=== PATIENT | male | born 1950 | race Native Hawaiian/Other Pacific Islander ===

== ENCOUNTER 2019-05-26 19:26 | Inpatient (IN) | payer OTHER ==
[2019-05-26] VITALS (9 sets, daily range): BP systolic 139–193; BP diastolic 72–86; TEMP 98.9
[~2019-05-26] VITALS: Ht 165.1 cm; Wt 61.2 kg
[2019-05-26 20:08] LABS: PLATELET COUNT 256 K/uL (142-355)
[2019-05-26 20:13] LABS: POTASSIUM 3.4 mmol/L (3.6-5.2); SODIUM 139 mmol/L (136-145)
[2019-05-26 20:17] LABS: PARTIAL THROMBOPLASTIN TIME 25.2 SECONDS (24.5-33.6)
[2019-05-27] VITALS (19 sets, daily range): BP systolic 119–171; BP diastolic 62–81; TEMP 97–97.4; Ht 165.1 cm; Wt 61.2 kg
[2019-05-27 10:08] LABS: PLATELET COUNT 242 K/uL (142-355)
[2019-05-27 11:26] LABS: POTASSIUM 4.1 mmol/L (3.6-5.2)
== END 2019-05-27 12:30 | disposition short-term general hospital (02) | DRG 101 ==
LOC: ED 19:26 → ICU 23:15 → MED/SURG 05-27 11:27
PROVIDERS: Family Medicine; ADMIT Hospitalist
DX: G40.802 Other epilepsy, not intractable, without status epilepticus (principal); E87.2 Acidosis; C64.9 Malignant neoplasm of unspecified kidney, except renal pelvis; C78.7 Secondary malignant neoplasm of liver and intrahepatic bile duct; C79.31 Secondary malignant neoplasm of brain; E87.6 Hypokalemia; E86.0 Dehydration; I10 Essential (primary) hypertension; J44.9 Chronic obstructive pulmonary disease, unspecified; Z72.0 Tobacco use; E16.1 Other hypoglycemia
CPT/HCPCS: 36415; 36600; 51702; 80053; 80164; 80185; 80307; 80320; 80329; 81000; 82550; 82805; 83605; 83880; 84484; 85027; 85610; 85730; 87040; 94664; 94760; 96361; 96365; 96366; 96375; 99285; J0696; J1165; J1650; J2060; J2405; J2930; J3370; J3490

== ENCOUNTER 2019-05-27 12:30 | Inpatient (IN) | payer OTHER ==
[~2019-05-27] VITALS: Ht 165.1 cm; Wt 36.7 kg
[2019-05-27 19:46] VITALS: BP 135/61; TEMP 97.4; Ht 165.1 cm; Wt 36.7 kg
[2019-05-27 20:00] VITALS: BP 137/64; TEMP 97.5
[2019-05-28 19:00] VITALS: BP 145/70; TEMP 99
[2019-05-28 19:15] VITALS: BP 152/65; TEMP 98.9
[2019-05-28 19:30] VITALS: BP 155/75; TEMP 99
[2019-05-28 19:45] VITALS: BP 150/65; TEMP 99
[2019-05-29 08:33] VITALS: BP 157/83; TEMP 98.7
[2019-05-29 20:00] VITALS: BP 169/85; TEMP 97.8
[2019-05-30] MEDS ORDERED: FENT25DI TD (11:11)
[2019-05-30] MEDS ORDERED: SENNA LAX8.6 MG PO (11:14)
[2019-05-30] MEDS ORDERED: FURO20TA67 PO (11:15)
[2019-05-30] MEDS ORDERED: BISA10SU8 RE (11:17)
[2019-05-30] MEDS ORDERED: ABACAVIR SULFAT1 TAB PO (11:27)
[2019-05-30] MEDS ORDERED: HYDROXYZINE HYD25 MG PO (11:28)
[2019-05-30] MEDS ORDERED: DICLOFENAC SODIUM1 % TD (11:57)
[2019-05-30] MEDS ORDERED: GABA300C2 PO (12:04)
[2019-05-30] MEDS ORDERED: ZOFRAN8 MG PO (12:08)
[2019-05-30] MEDS ORDERED: SCOP1.5D TD (12:10)
[2019-05-30] MEDS ORDERED: TYLENOL325 MG PO (12:13)
== END 2019-05-30 16:40 | DRG 687 ==
LOC: MED/SURG 12:30
PROVIDERS: ADMIT Family Medicine
DX: C64.9 Malignant neoplasm of unspecified kidney, except renal pelvis (principal); C78.7 Secondary malignant neoplasm of liver and intrahepatic bile duct; C79.31 Secondary malignant neoplasm of brain; G40.802 Other epilepsy, not intractable, without status epilepticus; E87.2 Acidosis; J44.9 Chronic obstructive pulmonary disease, unspecified; E86.0 Dehydration; E16.1 Other hypoglycemia
CPT/HCPCS: 80185; J1165; J2060